=== PATIENT | female | born 1995 | race Caucasian/White ===

== ENCOUNTER → 2023-01-23 | Outpatient (CLI) | payer BC, SELFPAY ==
--- NOTE | 2023-01-23 08:33 | US_ITS ---
STUDY: FIRST TRIMESTER OBSTETRICAL ULTRASOUND REASON FOR EXAM: Female, 27 years old dating LMP: November 12, 2022 TECHNIQUE: Transvaginal TECHNICAL QUALITY: Adequate. PRIOR ULTRASOUND: None. FINDINGS: There is visualization of a single gestational sac in a normal intrauterine position. The mean sac diameter (MSD) measures 2.58 cm, indicating an estimated gestational age (EGA) of 7 weeks, 4 days. The gestational sac shape is within normal limits. There is a visualized yolk sac. The yolk sac measures 3.7 mm. The placenta is non-visualized. There is visualization of a live embryo. The crown-rump length (CRL) measures 1.57 cm, indicating an estimated gestational age (EGA) of 7 weeks, 6 days. There is demonstrated cardiac activity with a heart rate of 159 bpm. The estimated gestation age (EGA) by LMP is 10 weeks, 2 days. The estimated date of delivery (BETHANIE) by LMP is August 19, 2023. The estimated gestation age (EGA) by US is 7 weeks, 5 days. The estimated date of delivery (BETHANIE) by US is September 06, 2023. The uterus measures 9.4 cm x 5.7 cm x 6.2 cm. There is no demonstrated uterine fibroid. The cervix is closed. The right ovary measures 2.9 cm x 3.1 cm x 1.7 cm. There is no right ovarian cyst. There is no visualized right adnexal mass or complex lesion. The left ovary measures 4.8 cm x 4.5 cm x 4 cm. There is a 2.8 cm x 2.5 cm x 2.5 cm left ovarian cyst. There is no visualized left adnexal mass or complex lesion. There is no fluid in the cul de sac. US/Transvaginal w/Preg US IMPRESSION: Single live uterine gestation with a mean gestational age of 7 weeks and 5 days. 2.8 cm x 2.5 cm by 2.5 cm left ovarian cyst. Electronically Signed: Cj Briggs MD at 9:30 EDT ,
[2023-01-25 05:07] LABS: Chlamydia By Nucleic Acid AMP Negative (Negative); Gonococcus By Nucleic Acid AMP Negative (Negative)
== END | disposition home or self-care (01) ==
PROVIDERS: Referring Provider Obstetrics & Gynecology; Visit Provider Obstetrics & Gynecology
DX: Z34.90 Encounter for supervision of normal pregnancy, unspecified, unspecified trimester (principal)
CPT/HCPCS: 76817; 87086; 87088; 87491; 87591

== ENCOUNTER → 2023-02-14 | Outpatient (CLI) | payer BC, SELFPAY ==
[2023-02-14 13:32] LABS: NATERA MAILED SPECIMEN
[2023-02-14 13:43] LABS: Absolute Lymphocyte Count 2.13 X10^3/uL (0.83-4.51); Absolute Neutrophil Count 9.1 X10^3/uL (2.0-7.7); Basophil# 0.02 X10^3/uL; Basophil% 0.2 % (0-1); Eosinophil# 0.09 X10^3/uL; Eosinophils% 0.8 % (0-5); Hematocrit 40.6 % (37-47); Hemoglobin 13.7 g/dL (12.0-15.0); Lymphocyte # 2.13 X10^3/ul (0.83-4.51); Mean Corp Hgb Conc 33.7 g/dL (32-36); Mean Corpuscular Hgb 26.9 pg (27.0-32.0); Mean Corpuscular Volume 79.6 fL (81-99); Mean Platelet Vol. 9.2 fl (6.2-12.0); Monocyte# 0.48 X10^3/uL; NRBC Flagged by Analyzer 0 % (0-5); Neutrophil % 76.7 % (47-70); Platelet Count 338 K/mm3 (150-450); RBC Distribution Width CV 14.6 % (11.6-14.6); RBC Distribution Width SD 41.9 fl (35.1-43.9); White Blood Count 11.9 K/mm3 (4.4-11.0)
[2023-02-14 14:11] LABS: Glucose Challenge Gest 1H 50g 132 mg/dL (70-140)
[2023-02-14 14:53] LABS: HIV - WCH Non-Reactive (Nonreactive); Hepatitis B Surface Antigen Non-Reactive (Nonreactive); Hepatitis C Antibody Non-Reactive (Nonreactive); Rubella IgG Reactive (Nonreactive); Syphilis Antibodies Non-reactive
== END | disposition home or self-care (01) ==
LOC: LAB 12:30
PROVIDERS: Referring Provider Obstetrics & Gynecology; Visit Provider Obstetrics & Gynecology
DX: O99.210 Obesity complicating pregnancy, unspecified trimester (principal); Z3A.00 Weeks of gestation of pregnancy not specified
CPT/HCPCS: 36415; 82950; 85025; 86703; 86762; 86780; 86803; 86850; 86900; 86901; 87340

== ENCOUNTER → 2023-06-05 | Outpatient (CLI) | payer BC, SELFPAY ==
[2023-06-05 13:06] LABS: Absolute Lymphocyte Count 1.82 X10^3/uL (0.83-4.51); Absolute Neutrophil Count 11.6 X10^3/uL (2.0-7.7); Basophil# 0.03 X10^3/uL; Basophil% 0.2 % (0-1); Eosinophil# 0.13 X10^3/uL; Eosinophils% 0.9 % (0-5); Hematocrit 38.3 % (37-47); Hemoglobin 12.4 g/dL (12.0-15.0); Lymphocyte # 1.82 X10^3/ul (0.83-4.51); Lymphocyte % 12.8 % (19-41); Mean Corp Hgb Conc 32.4 g/dL (32-36); Mean Corpuscular Hgb 26.3 pg (27.0-32.0); Mean Corpuscular Volume 81.1 fL (81-99); Mean Platelet Vol. 9.3 fl (6.2-12.0); Monocyte# 0.58 X10^3/uL; Monocyte% 4.1 % (0-10); NRBC Flagged by Analyzer 0 % (0-5); Neutrophil # 11.56 X10^3/uL (2.7-7.7); Neutrophil % 81.2 % (47-70); Platelet Count 314 K/mm3 (150-450); RBC Distribution Width CV 14.6 % (11.6-14.6); RBC Distribution Width SD 43.1 fl (35.1-43.9); Red Blood Count 4.72 M/mm3 (4.2-5.4); White Blood Count 14.2 K/mm3 (4.4-11.0)
[2023-06-05 13:30] LABS: Glucose Challenge Gest 1H 50g 120 mg/dL (70-140)
[2023-06-05 14:04] LABS: HIV - WCH Non-Reactive (Nonreactive); Syphilis Antibodies Non-reactive
== END | disposition home or self-care (01) ==
PROVIDERS: Referring Provider Obstetrics & Gynecology; Visit Provider Obstetrics & Gynecology
DX: O09.92 Supervision of high risk pregnancy, unspecified, second trimester (principal); Z13.1 Encounter for screening for diabetes mellitus; Z3A.23 23 weeks gestation of pregnancy
CPT/HCPCS: 36415; 82950; 85025; 86703; 86780; 86850; 86900; 86901

== ENCOUNTER → 2023-07-13 | Outpatient (CLI) | payer BC, SELFPAY ==
[2023-07-13 10:40] LABS: Absolute Lymphocyte Count 1.92 X10^3/uL (0.83-4.51); Absolute Neutrophil Count 9.7 X10^3/uL (2.0-7.7); Basophil# 0.02 X10^3/uL; Basophil% 0.2 % (0-1); Eosinophil# 0.14 X10^3/uL; Eosinophils% 1.1 % (0-5); Hematocrit 38.7 % (37-47); Hemoglobin 12.2 g/dL (12.0-15.0); Lymphocyte # 1.92 X10^3/ul (0.83-4.51); Lymphocyte % 15.3 % (19-41); Mean Corp Hgb Conc 31.5 g/dL (32-36); Mean Corpuscular Hgb 25.3 pg (27.0-32.0); Mean Corpuscular Volume 80.3 fL (81-99); Mean Platelet Vol. 9.6 fl (6.2-12.0); Monocyte# 0.64 X10^3/uL; Monocyte% 5.1 % (0-10); NRBC Flagged by Analyzer 0 % (0-5); Neutrophil # 9.71 X10^3/uL (2.7-7.7); Neutrophil % 77.6 % (47-70); Platelet Count 277 K/mm3 (150-450); RBC Distribution Width SD 43.4 fl (35.1-43.9); Red Blood Count 4.82 M/mm3 (4.2-5.4); White Blood Count 12.5 K/mm3 (4.4-11.0)
[2023-07-13 10:58] LABS: ALB/GLOB Ratio 0.6 RATIO (0.9-2.4); AST(SGOT) 14 U/L (15-37); Alanine Aminotransfer ALT/SGPT 18 U/L (13-56); Albumin, Serum 2.5 g/dL (3.2-5.0); Alkaline Phosphatase 119 U/L (45-117); Anion Gap 4 (5-15); BUN 5 mg/dL (7-18); BUN/Creat Ratio 8.9 RATIO (10-20); Calcium,Total 8.8 mg/dL (8.5-10.1); Chloride 106 mmol/L (98-107); Creatinine, Serum 0.56 mg/dL (0.55-1.02); EST Glomerular Filtration Rate 138 mL/min (>60); Est Glom Filt Rate - Afr Amer 167 mL/min (>60); Globulin 4.3 g/dL (2.2-4.2); Glucose 95 mg/dL (74-106); Potassium 3.9 mmol/L (3.5-5.1); Protein, Total 6.8 g/dL (6.4-8.2); Protein, Urine (Random) 21.1 mg/dL (<11.9); Protein:Creat Ratio 172 mg/g CRE (0-200); Sodium Level 136 mmol/L (136-145)
== END | disposition home or self-care (01) ==
LOC: LAB 10:13
PROVIDERS: Visit Provider Advanced Practice Midwife
DX: R51.9 Headache, unspecified (principal)
CPT/HCPCS: 36415; 80053; 82570; 84156; 85025

== ENCOUNTER → 2023-08-13 | Outpatient (CLI) | payer OTHER, BC, SELFPAY ==
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
== END | disposition home or self-care (01) ==
LOC: LABSPEC 16:44
PROVIDERS: Referring Provider Obstetrics & Gynecology; Visit Provider Obstetrics & Gynecology
DX: O09.90 Supervision of high risk pregnancy, unspecified, unspecified trimester (principal); Z3A.00 Weeks of gestation of pregnancy not specified
CPT/HCPCS: 87077; 87081; 87186

== ENCOUNTER 2023-09-04 09:23 | Inpatient (IN) | payer OTHER, BC, SELFPAY ==
[2023-09-04] VITALS (41 sets, daily range): BP systolic 107–138; BP diastolic 57–97; PULSE 77–245; RESP 14–19; TEMP 36.4–37.7; O2SAT 81–100; BMI 37.9
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
[2023-09-04] MEDS: LACTATED RINGERS 500 ML 999 ML IV ×3 (10:05→14:40)
[2023-09-04] MEDS: Lactated Ringers 1,000 ML 50 ML IV (10:05)
[2023-09-04 10:17] LABS: Absolute Lymphocyte Count 1.72 X10^3/uL (0.83-4.51); Absolute Neutrophil Count 13.5 X10^3/uL (2.0-7.7); Basophil# 0.04 X10^3/uL; Basophil% 0.3 % (0-1); Eosinophil# 0.03 X10^3/uL; Eosinophils% 0.2 % (0-5); Hematocrit 38.6 % (37-47); Hemoglobin 12.5 g/dL (12.0-15.0); Lymphocyte # 1.72 X10^3/ul (0.83-4.51); Lymphocyte % 10.8 % (19-41); Mean Corp Hgb Conc 32.4 g/dL (32-36); Mean Corpuscular Hgb 24.6 pg (27.0-32.0); Mean Platelet Vol. 10.5 fl (6.2-12.0); Monocyte# 0.57 X10^3/uL; Monocyte% 3.6 % (0-10); NRBC Flagged by Analyzer 0 % (0-5); Neutrophil # 13.48 X10^3/uL (2.7-7.7); Neutrophil % 84.6 % (47-70); Platelet Count 207 K/mm3 (150-450); RBC Distribution Width CV 15.9 % (11.6-14.6); RBC Distribution Width SD 43.5 fl (35.1-43.9); Red Blood Count 5.08 M/mm3 (4.2-5.4); White Blood Count 15.9 K/mm3 (4.4-11.0)
[2023-09-04] MEDS: Penicillin G Pot 5,000,000 UNITS in 0.9% Normal Saline (100mL MB+) 100 ML 150 UNITS IV (10:38)
[2023-09-04 10:48] LABS: Syphilis Antibodies Non-reactive
[2023-09-04] MEDS: fentaNYL-bupivacaine (epidural) 100 ML BAG EPIDURAL (11:40)
[2023-09-04] MEDS: Ondansetron 4 MG/2 ML Vial IV ×2 (12:20→19:56)
--- NOTE | 2023-09-04 12:51 | HP.PCM.OB_ITS ---
HPI - General General Date of Admission: 09/04/23 HPI Narrative GENO AGUILAR, is a 28 y/o @ 39 weeks 6 days who presents to L&D with painful contractions that started last night. She was 0.5 cm dilated in the office on 08/27 and she was found to be 2 cm dilated/80/-1 today. She rates her pain a 7/10 and is requesting an epidural. Maternal Data Information BETHANIE Calculator Estimated Delivery Date Method Current WG Current Estimate 09/05/23 Ultrasound #1 39w 6d Other Estimates 08/19/23 LMP (Uncertain) 42w 2d PFSH PFSH Home Medications PNV 178-FA 180 mcg-om3 35 mg-dha 25 mg-epa 5 mg-fish oil chew tablet 1 tab PO DAILY 01/15/23 [History Last Taken Unknown] Allergy/AdvReac Type Severity Reaction Status Date / Time adhesive Allergy Intermediate Hives Verified 09/04/23 07:25 cefdinir [From Omnicef] Allergy Intermediate Hives Verified 09/04/23 07:25 Family History Grandmother Breast cancer maternal Surgical History Maynard teeth extracted Social History adopted: No household members: spouse current occupational status: employed 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 current occupational exposures/hazards: No pets and animals: Yes pets and animals: dog(s) history of recent travel: No sexually active: Yes Smoking Status: Never smoker alcohol intake: current alcohol intake frequency: holidays/special occasions only details: Not while substance use type: does not use well-balanced diet: daily or most days caffeine: No eating out: 1-3 times/week during the past year weight has: remained stable what type of physical activity do you participate in: walking frequency: 3-4 times per week duration: 15-30 minutes/day brigette/shinto: None seatbelt use: always do you feel safe at home: Yes additional social history: Juan Rodriguez History 1 Elective abortions Hx Para 0 Spontaneous abortions Hx # Term Pregnancies Ectopic pregnancies Hx # Pregnancies Multiple births # of living children Visit Details Expected Delivery Route/Plan Labor Preferences- CB/BF classes: encouraged labor support person: Juan labor intervention preferences: [] pain management options preferred: limited preferred but ok if epidural needed cut cord/dad catch: cord maybe : yes PP control planned: discussed discussed possible routes of delivery and associated risks: [] special requests: [] Plans Covid status: first 2 moderna vaccines Flu vaccine: obtained 05/13 Tdap vaccine: given Rhogam: NA LARC form signed: Yes movement and labor precautions reviewed. Problem list reviewed and updated with the most current plan of care details and appropriate orders placed. Relevant counseling for the gestational age provided. Continue routine care and follow up unless otherwise noted in visit notes/problem list details OB Flowsheet Initial Weight: 225 lb Date -?-?-?-?-?-?-?-?-?-?-?-?- EGA Weight BP Urine Prot -?-?-?-?-?-?-?-?-?-?-?-?- Glucose FHR FuHt Pres Dilation -?-?-?-?-?-?-?-?-?-?-?-?- Effaced St Visit Note 01/23/23 -?-?-?-?-?-?-?-?-?-?-?-?- 7w 6d 225 lb 8 oz (+8 oz) 129/82 -?-?-?-?-?-?-?-?-?-?-?-?- 159 -?-?-?-?-?-?-?-?-?-?-?-?- JV- CRL measured per radiology department and off by several weeks from LMP. BETHANIE 09/05/23 based on preliminary results 02/19/23 -?-?-?-?-?-?-?-?-?-?-?-?- 11w 5d 224 lb (-16 oz) 128/84 Negative -?-?-?-?-?-?-?-?-?-?-?-?- Negative 141 -?-?-?-?-?-?-?-?-?-?-?-?- JV- still having some nausea that is worse at night. will try phenergan. anatomy scan ordered, 03/19/23 -?-?-?-?-?-?-?-?-?-?-?-?- 15w 5d 224 lb (-16 oz) 128/82 Negative -?-?-?-?-?-?-?-?-?-?-?-?- Negative 161 -?-?-?-?-?-?-?-?-?-?-?-?- MH-No VB. Nausea MH-No VB. Nausea still persi sts but improving. Declines zofran. Reviewed management 04/15/23 -?-?-?-?-?-?-?-?-?-?-?-?- 19w 4d 225 lb (+0 oz) 121/74 Negative -?-?-?-?-?-?-?-?-?-?-?-?- Negative 151 -?-?-?-?-?-?-?-?-?-?-?-?- JV- low lying pl acenta and insuffient anatomy views. needs to return in 2-4 weeks and again at 28 weeks to rpt placenta location. 05/13/23 -?-?-?-?-?-?-?-?-?-?-?-?- w 4d 225 lb (+0 oz) 129/80 Negative -?-?-?-?-?-?-?-?-?-?-?-?- Negative 150 24 -?-?-?-?-?-?-?-?-?-?--?-?- LC- no vb/ctx/lo f. good fm. cont with insufficient views. rpt with 28 week us. flu vaccine today. 28 week labs ordered. 06/11/23 -?-?-?-?-?-?-?-?-?-?-?-?- 27w 5d 228 lb 2 oz (+3 lb 2 oz) 128/84 Negative -?-?-?-?-?-?-?-?-?-?-?-?- Negative 158 28 -?-?-?-?-?-?-?-?-?-?-?-?- MH-No VB, LOF. G ood FM. US today. Nl 28 wk labs. Larc. 06/28/23 -?-?-?-?-?-?-?-?-?-?-?-?- 30w 1d 230 lb 2 oz (+5 lb 2 oz) 123/82 Negative -?-?-?-?-?-?-?-?-?-?-?-?- Negative 138 30 -?-?-?-?-?-?-?-?-?-?-?-?- LC- no vb/ctx/lo f. good fm. tdap today. 07/09/23 -?-?-?-?-?-?-?-?-?-?-?-?- 31w 5d 234 lb 2 oz (+9 lb 2 oz) Negative -?-?-?-?-?-?-?-?-?-?-?-?- Negative 135 32 -?-?-?-?-?-?-?-?-?-?-?-?- kw-no vb/lof/ctx . good fm. discussed CB classes and Round Ligament pain. 07/23/23 -?-?-?-?-?-?-?-?-?-?-?-?- 33w 5d 229 lb 4 oz (+4 lb 4 oz) 124/84 Negative -?-?-?-?-?-?-?-?-?-?-?-?- Negative 142 33 Cephalic -?-?-?-?-?-?-?-?-?-?-?-?- MH-No Vb, LOF. G ood FM. Denies concerns 08/06/23 -?-?-?-?-?-?-?-?-?-?-?-?- 35w 5d 234 lb 6 oz (+9 lb 6 oz) 234/6 123/84 Negative -?-?-?-?-?-?-?-?-?-?-?-?- Negative 160 36 -?-?-?-?-?-?-?-?-?-?-?-?- JV- no lof, vagi nal bleeding, some contractions. plan gbs next visit. 08/13/23 -?-?-?-?-?-?-?-?-?-?-?-?- 36w 5d 235 lb (+10 lb) 125/85 -?-?-?-?-?-?-?-?-?-?-?-?- 140 37 Cephalic 0 -?-?-?-?-?-?-?-?-?-?-?-?- SM- no vb lof go od fm no regular ctx gbs done 08/20/23 -?-?--?-?-?-?-?-?-?-?-?-?- 37w 5d 236 lb (+11 lb) 128/85 Trace -?-?-?-?-?-?-?-?-?-?-?-?- Negative 145 39 Cephalic -?-?-?-?-?-?-?-?-?-?-?-?- JV- JV- no lof, vaginal bleeding , or dec fm. 08/27/23 -?-?-?-?-?-?-?-?-?-?-?-?- 38w 5d 240 lb 8 oz (+15 lb 8 oz) 129/87 Negative -?-?-?-?-?-?-?-?-?-?-?-?- Negative 147 39 Cephalic 0 .5 -?-?-?-?-?-?-?-?-?-?-?-?- 30 -3 JV- no lof , vaginal bleeding, or dec fm. labor precautions discussed ROS Constitutional Constitutional: Denies change in weight, fatigue, fever(s), headache(s), poor appetite or weakness Eyes Eyes: Denies blurry vision, change in vision, seeing flashes or spots in vision ENT HEENT: Denies dizziness, headache(s), loss taste/smell or sore throat Cardiovascular Cardiovascular: Denies chest pain, dizziness, dyspnea, irregular heart rhythm, leg edema, palpitations, rapid heart rate or vomiting Respiratory/Chest Respiratory/Chest: Denies chest tightness, cough, dyspnea or breast pain Gastrointestinal Gastrointestinal: Denies abdominal pain, anorexia, constipation, cramping, diarrhea, hemorrhoids, vomiting or weight changes Genitourinary Genitourinary: Denies dysuria, flank pain, genital lesions, genital pain, urinary frequency or urinary urgency Musculoskeletal Musculoskeletal: Denies back pain, difficulty walking, joint pain, limited range of motion, muscle cramps or numbness Integumentary Integumentary: Denies lesions or unusual bruising Neurologic Neurologic: Denies abnormal movements, abnormal speech, dizziness, numbness, seizure-like activity or syncope Psychiatric Psychiatric: Denies anxiety, behavioral changes, change in appetite, change in libido, cognitive impairment, confusion, depression, difficulty concentrating, hallucinations or suicidal thoughts Endocrine Endocrinology: Denies excessive sweating, polydipsia or polyuria Hematologic/Lymphatic Hematologic/Lymphatic: Denies easy bleeding, easy bruising or lymphadenopathy Allergic/Immunologic Allergic/Immunologic: Denies itchy eyes, lip swelling, seasonal rhinorrhea, rhinitis, throat swelling, tongue swelling, eczemia, wheezing or asthma Vital Signs Vital Signs Vital Signs: 09/04/23 07:16 09/04/23 07:16 09/04/23 07:19 Temperature Temperature Source Pulse Rate 245 H Blood Pressure 132/85 H BP Systolic 132 BP Diastolic 85 Pulse Ox 81 09/04/23 07:19 09/04/23 07:17 09/04/23 07:17 Temperature Temperature Source Temporal Pulse Rate 88 Blood Pressure BP Systolic BP Diastolic Pulse Ox 97 09/04/23 07:17 09/04/23 10:14 09/04/23 10:14 Temperature 98.0 F Temperature Source Pulse Rate 77 Blood Pressure 129/78 H BP Systolic 129 BP Diastolic 78 Pulse Ox 09/04/23 10:15 09/04/23 10:16 09/04/23 10:16 Temperature Temperature Source Temporal Pulse Rate 81 Blood Pressure BP Systolic BP Diastolic Pulse Ox 97 09/04/23 10:15 09/04/23 10:59 09/04/23 10:59 Temperature 97.6 F L Temperature Source Pulse Rate 106 H Blood Pressure BP Systolic BP Diastolic Pulse Ox 99 09/04/23 11:04 09/04/23 11:04 09/04/23 11:07 Temperature Temperature Source Pulse Rate 108 H Blood Pressure 121/77 H BP Systolic 121 BP Diastolic 77 Pulse Ox 98 09/04/23 11:07 09/04/23 11:09 09/04/23 11:09 Temperature Temperature Source Pulse Rate 92 106 H Blood Pressure BP Systolic BP Diastolic Pulse Ox 97 09/04/23 11:12 09/04/23 11:12 09/04/23 11:14 Temperature Temperature Source Pulse Rate 88 97 Blood Pressure 117/75 BP Systolic 117 BP Diastolic 75 Pulse Ox 09/04/23 11:14 09/04/23 11:17 09/04/23 11:17 Temperature Temperature Source Pulse Rate 96 Blood Pressure 107/63 BP Systolic 107 BP Diastolic 63 Pulse Ox 97 09/04/23 11:19 09/04/23 11:19 09/04/23 11:22 Temperature Temperature Source Pulse Rate 88 Blood Pressure 110/64 BP Systolic 110 BP Diastolic 64 Pulse Ox 97 09/04/23 11:22 09/04/23 11:24 09/04/23 11:24 Temperature Temperature Source Pulse Rate 89 86 Blood Pressure BP Systolic BP Diastolic Pulse Ox 99 09/04/23 11:27 09/04/23 11:27 09/04/23 11:29 Temperature Temperature Source Pulse Rate 82 88 Blood Pressure 112/61 BP Systolic 112 BP Diastolic 61 Pulse Ox 09/04/23 11:29 09/04/23 11:34 09/04/23 11:34 Temperature Temperature Source Pulse Rate 106 H Blood Pressure BP Systolic BP Diastolic Pulse Ox 100 98 09/04/23 12:12 09/04/23 12:12 09/04/23 12:12 Temperature Temperature Source Pulse Rate 79 Blood Pressure 111/57 L BP Systolic 111 BP Diastolic 57 Pulse Ox 100 Weight Weight: 235 lb Body Mass Index (BMI) 37.9 Physical Exam Const alert, oriented x3, no apparent distress and healthy appearing General Appearance: cooperative; Negative for anxious HEENT normocephalic Face and Sinus: normal facial exam Eyes EOMs intact bilaterally and no scleral icterus General Eye: normal appearance of both eyes Neck full ROM and supple Lymph Lymphatic: no lymphadenopathy noted Chest Chest: abnormal inspection of the chest Resp normal respiratory effort Effort and Inspection: able to speak in complete sentences Cardio regular rate GI soft to palpation and non-tender Inspection: gravid Palpation: soft; Negative for tender external exam normal Narrative: cx 2/80/-1, membranes ruptured and clear fluid returned. an IUPC was then placed without difficulty. Amniotic Fluid: ROM+plus Back/Spine no CVA tenderness Extremity normal to inspection, full ROM and no clubbing, cyanosis or edema General Extremity: Negative for calf tenderness or edema Skin Lesions: no lesions Rashes: no rashes Psych mental status grossly normal Labs Labs Labs: Blood Type O POSITIVE Antibody Screen NEGATIVE Hct 38.6 % (37-47) Hgb 12.5 g/dL (12.0-15.0) Obstetrics Ultrasound Syphilis Total Ab Non-reactive Rubella IgG Antibody Reactive (Nonreactive) Hep Bs Antigen Non-Reactive (Nonreactive) Hepatitis C Antibody Non-Reactive (Nonreactive) Chlamydia DNA (BLAIRE) Negative (Negative) N.gonorrhoeae DNA (BLAIRE) Negative (Negative) HIV 1&2 Antibody Non-Reactive (Nonreactive) Glucose 1 Hr 50 gm 120 mg/dL (70-140) Assessment & Plan (1) Positive GBS test: COMMENT: treat in labor (2) Obesity affecting : QUALIFIERS: Trimester: second trimester Obesity type affecting : unspecified obesity Qualified Code(s): O99.212 - Obesity complicating , second trimester COMMENT: normal GCT (3) Supervision of high-risk : QUALIFIERS: Trimester: second trimester Qualified Code(s): O09.92 - Supervision of high risk , unspecified, second trimester COMMENT: [id number], BETHANIE 08/19/23 girl Daniel Juan normal glucola (4) : QUALIFIERS: Weeks of gestation: 38 weeks Qualified Code(s): Z3A.38 - 38 weeks gestation of COMMENT: NIPT LR.declined carrier and afp. normal anatomy PLAN: Plan Patient presents IAL, plan expectant management for , pitocin PRN Pain management: plans epidural. GBS positive plan IV PCN. Management of any complications: none I have reviewed the [facility] and made any clinically relevant updates.
[2023-09-04] MEDS: Amnioinfusion- 0.9% NS 1,000 ML IV.SOLN. 1000 ML INTRA-UTER (14:00)
[2023-09-04] MEDS: Penicillin G 3,000,000 Units 50 ML 100 UNITS IV (14:40)
[2023-09-04] MEDS: Acetaminophen 500 MG Tablet PO (15:08)
[2023-09-04] MEDS: Sodium Citrate/Citric Acid 30 ML UDC PO (15:08)
[2023-09-04] MEDS: Clindamycin 900 MG/50 ML BAG 75 MG IV (15:24)
[2023-09-04] MEDS: Gentamicin IV 300 MG in Dextrose 5%-Water (50mL Bag) 50 ML 100 MG IVPB (15:31)
[2023-09-04] MEDS: Azithromycin 500 MG in Dextrose 5%-Water (250mL Bag) 250 ML 250 MG IV (16:00)
[2023-09-04] MEDS: Oxytocin 15 Units/NS 250ml 15 UNITS/250 ML IV.SOLN 83 UNITS IV (16:30)
--- NOTE | 2023-09-04 16:45 | EX.PCM.OBRPT ---
Assessment & Plan (1) Positive GBS test: COMMENT: treat in labor (2) Obesity affecting : QUALIFIERS: Obesity type affecting : unspecified obesity Trimester: second trimester Qualified Code(s): O99.212 - Obesity complicating , second trimester COMMENT: normal GCT (3) Supervision of high-risk : QUALIFIERS: Trimester: second trimester Qualified Code(s): O09.92 - Supervision of high risk , unspecified, second trimester COMMENT: [id number], BETHANIE 08/19/23 girl Jayden Juan normal glucola (4) : QUALIFIERS: Weeks of gestation: 38 weeks Qualified Code(s): Z3A.38 - 38 weeks gestation of COMMENT: NIPT LR.declined carrier and afp. normal anatomy (5) intolerance to labor, delivered, current hospitalization: Maternal Data Information BETHANIE Calculator Estimated Delivery Date Method Current WG Current Estimate 09/05/23 Ultrasound #1 39w 6d Other Estimates 08/19/23 LMP (Uncertain) 42w 2d Final BETHANIE: 09/05/23 Final BETHANIE Source: US <20 weeks Gestational age: 39 weeks 6 days Doctor Who Attended Delivery: Lorraine Mccormick Details Operative Information Date of Procedure: 09/04/23 Pre-Operative Diagnosis: 28 y/o @ 39 weeks 6 days, intolerance to labor Post-Operative Diagnosis: 28 y/o @ 39 weeks 6 days, intolerance to labor Indications for : Suspected chorioamnionitis (Suspected Triple I) Indications Narrative: The patient was admitted for active labor management. She recieved an epidural and after 1 hour consented to Artificial rupture of membranes. This was at 12:20 on 09/04/23. After AROM the tracing changed from a category 1 to a persistent category 2 despite fluid bolus, position change, and amnioinfusion. The patient was found to be laurent often but not making much cervical change. There were no signs of bleeding or infection. The cervix was noted to be dilated 4/90/-1. The decision was made to proceed with a section Classification: GRADY Procedure Type: low transverse medical physics professor #1: Suzy Olivera Type of Anesthesia: Epidural Anesthesiologist: Hong Bernard Antibiotic Given: Clindamycin 600mg IV x1 and Gentamicin 1.5mg/kg IV x1 Drain: Wang to straight drain Estimated Blood Loss: 600cc Procedure Start Time: 15:27 Procedure Stop Time: 16:10 Findings Description of Procedure: The patient anesthesia was placed without difficulty. Wang catheter was placed. The patient was placed in the dorsal supine position with leftward tilt. Patient was prepped and draped in the normal sterile fashion. Pfannenstiel skin incision was made with the scalpel and carried through to the underlying layer of fascia with the scalpel. Fascia was nicked in the midline and the incision extended laterally. The rectus bellies were dissected off superiorly and inferiorly with out complication both sharply and bluntly. The peritoneum was entered digitally. The incision was stretched and a low transverse uterine incision was made with the scalpel. The 's head was delivered atraumatically followed by the anterior and posterior shoulders without complication the rest of the delivered. The cord was clamped and cut and the was handed off to awaiting nurse. The placenta was delivered spontaneously immediately following and was noted to be intact and have a three-vessel cord. The uterus was exteriorized cleared of all clots and debris, and the incision was closed in a double layer closure using #1 Vicrul and #1 Monocryl. The ovaries and fallopian tubes were noted to be within normal limits. The uterus was returned to the maternal abdomen and gutters were cleared of all clots and debris. The peritoneum was closed with 3-0 Monocryl in a running fashion. Fascia was closed with 0 PDS in a running fashion. Subcutaneous tissue was copiously irrigated and the skin was closed with 3-0 Monocryl in a subcuticular fashion. Mepilex dressing was applied without complication. Patient was taken to recovery in stable condition. It was discussed with the patient that based on the clinical information obtained during this encounter, combined with her history, at this time I would recommend either or repeat section for future deliveries if further pregnancies are desired. Presentation: Positive for Vertex Amniotic Membrane Rupture Type: Artificial Time of Membrane Ruptured: 1220 Amniotic Fluid Description: Clear Placental Delivery Description: Manual Removal Placenta Disposition: [facility] Cord Vessel Description: 3 Vessels Cord Entanglement: None A Gender: Female (1 minute): 8 (5 minute): 9 Delayed Cord Clamping: Yes Complications Risks of Surgery Discussed w/Patient: Bleeding, Anesthesia Risks, Need for Future C-Sections and Injury to surrounding structure(s) including bowel and bladder Complications: none Multi Select Codes Urinary/Genital Urinary/Genital CPT Codes: 74505 delivery+ Care([facility])
--- NOTE | 2023-09-04 17:01 | DCINST_ITS ---
Discharge Instructions Diet Discharge Diet: No restrictions Activity Discharge Activity: May Not Drive (for 2 weeks or while taking narcotic pain medications.), May Shower and May Take a Tub Bath (in 7 days.) May resume sexual activity in: 4-6 weeks Weight Bearing Status: Full weight bearing Lifting Restrictions: 20 pounds Dressing / Incision Call your doctor if your incision/area has: Continuous Slow Oozing, Sudden Increased Bleeding, Increased Pain/ Swelling, Increased Redness and Foul Smelling Discharge Call your doctor if you observe: Fever of 101 or Higher and Using more than 1 pad per hour Suture Line Care: Avoid Pulling/Pushing and Avoid Pinching/Bending Cleanse incision/area with: Soap & Water and Keep Dressing Clean & Dry Follow Up Care Please Follow Up With: Rosamaria Gonzales DO When: Call [phone] to make an appointment for an incision check in 1-2 weeks. Test Results: Test results from this visit will be discussed in further detail at your follow- up appointment, if applicable. Discharge Plan Admission Admit Date/Time: 09/04/23 09:23 Primary Reason for Your Visit: section Attending Provider: Rosamaria Gonzales Primary Care Provider: Nate Physician,Frannie Primary Discharge Orders/Prescriptions Prescriptions: New ibuprofen 800 mg tablet 800 mg PO Q8H PRN (Reason: pain) Qty: 30 0RF No Action PNV no.[id number] 180 mcg-35 mg- 25 mg-5 mg tablet,chewable 1 tab PO DAILY Referrals / Follow Up: Care Physician,No Primary [Primary Care Provider] - Disposition Disposition (needs filled in before D/C Order can be placed): Home, Self Care
[2023-09-04] MEDS: Ketorolac 30 MG/ML Syringe IV ×2 (17:29→23:18)
[2023-09-04] MEDS: Lactated Ringers 1,000 ML 100 ML IV (19:39)
[2023-09-04] MEDS: Acetaminophen 500 MG Tablet 1000 MG PO (20:38)
[2023-09-05] VITALS (7 sets, daily range): BP systolic 101–134; BP diastolic 67–93; PULSE 78–94; RESP 16–18; TEMP 36.2–36.8; O2SAT 96–100
[2023-09-05] MEDS: Acetaminophen 500 MG Tablet 1000 MG PO ×4 (03:03→20:43)
[2023-09-05] MEDS: Ketorolac 30 MG/ML Syringe IV ×2 (05:16→11:23)
[2023-09-05] MEDS: 0.9% Saline Lock 10 ML Syringe IV ×2 (05:17→11:24)
[2023-09-05 05:35] LABS: Hematocrit 29.6 % (37-47); Hemoglobin 9.5 g/dL (12.0-15.0); Mean Corp Hgb Conc 32.1 g/dL (32-36); Mean Corpuscular Hgb 24.9 pg (27.0-32.0); Mean Corpuscular Volume 77.5 fL (81-99); Mean Platelet Vol. 9.8 fl (6.2-12.0); Platelet Count 184 K/mm3 (150-450); RBC Distribution Width SD 44.7 fl (35.1-43.9); Red Blood Count 3.82 M/mm3 (4.2-5.4); White Blood Count 16.9 K/mm3 (4.4-11.0)
--- NOTE | 2023-09-05 08:05 | PCM.PN.OB ---
Subjective Subjective Patient doing well without complaints. Tolerating PO. Ambulating and voiding without difficulty. feeding well. Denies chest pain, shortness of breath, calf pain/swelling, fevers, chills, lightheadedness. Objective Data Objective Data Vital Signs: Vital Signs Temp Pulse Resp BP Pulse Ox O2 Del Method 97.4 F L 94 16 126/80 H 100 Room Air 09/05/23 02:59 09/05/23 05:33 09/05/23 05:33 09/05/23 02:59 09/05/23 05:33 09/05/23 05:33 Oxygen Delivery Method Room Air Weight: 235 lb Body Mass Index (BMI) 37.9 Intake & Output: Intake and Output for Last 24 Hours 09/03/23 09/04/23 09/05/23 23:59 23:59 23:59 Intake Total 3763.33 / 3763.33 860 / 860 Output Total 1750 / 1750 400 / 400 Balance / 460 / 460 Lab / Micro Data 09/05/23 05:25 Labs: Laboratory Results - last 24 hr 09/04/23 09:50: WBC 15.9 H, RBC 5.08, Hgb 12.5, Hct 38.6, MCV 76.0 L, MCH 24.6 L, MCHC 32.4, RDW Std Deviation 43.5, RDW Coeff of Alejandra 15.9 H, Plt Count 207, MPV 10.5, Immature Gran % (Auto) 0.500, Neut % (Auto) 84.6 H, Lymph % (Auto) 10.8 L, [place] % (Auto) 3.6, Eos % (Auto) 0.2, Baso % (Auto) 0.3, Absolute Neuts (auto) 13.5 H, Absolute Lymphs (auto) 1.72, Nucleated RBC % 0, Syphilis Total Ab Non-reactive, Blood Type O POSITIVE, Antibody Screen NEGATIVE 09/05/23 05:25: WBC 16.9 H, RBC 3.82 L, Hgb 9.5 L, Hct 29.6 L, MCV 77.5 L, MCH 24.9 L, MCHC 32.1, RDW Std Deviation 44.7 H, RDW Coeff of Alejandra 16.0 H, Plt Count 184, MPV 9.8 ROS Constitutional Constitutional: Reports systems reviewed and no addt'l complaints, except as documented Cardiovascular Cardiovascular: Reports systems reviewed and no addt'l complaints, except as documented Respiratory/Chest Respiratory/Chest: Reports systems reviewed and no addt'l complaints, except as documented Gastrointestinal Gastrointestinal: Reports systems reviewed and no addt'l complaints, except as documented Physical Exam Const alert, oriented x3 and no apparent distress HEENT Head and Scalp: atraumatic Resp normal respiratory effort GI soft to palpation and non-tender Inspection: incision intact, healing well and drainage (none) Bimanual Exam - Vag & Uterus: uterus non-tender Uterus Palpation: uterus fundus firm (below Umbilicus) Assessment & Plan (1) delivery delivered: COMMENT: JV PLAN: Plan s/p LTCS PPD # 1 1. routine post care 2. breast feeding- support given 3. rh positive 4. rubella immune
[2023-09-05] MEDS: Senna/Docusate Sodium 1 Tablet PO (09:30)
[2023-09-05] MEDS: Ibuprofen 600 MG Tablet PO ×2 (17:40→23:43)
[2023-09-05] MEDS: oxyCODONE 5 MG Tablet PO ×2 (17:42→22:03)
[2023-09-06 03:00] VITALS: BP 111/74; PULSE 94; RESP 16; O2SAT 97
[2023-09-06] MEDS: Acetaminophen 500 MG Tablet 1000 MG PO ×3 (03:01→16:50)
[2023-09-06] MEDS: oxyCODONE 5 MG Tablet PO ×3 (04:18→18:54)
[2023-09-06] MEDS: Ibuprofen 600 MG Tablet PO ×3 (05:48→16:51)
[2023-09-06] MEDS: Senna/Docusate Sodium 1 Tablet PO (08:58)
[2023-09-06 10:00] VITALS: BP 129/88; PULSE 99; RESP 18; TEMP 36.2; O2SAT 96
[2023-09-06 18:00] VITALS: BP 126/96; PULSE 87; RESP 16; TEMP 36.6; O2SAT 98
--- NOTE | 2023-09-10 13:43 | NURSING ---
f/up phone call 09/10: doing really well, denies any s+s, vaginal bleeding minimal, had a good hospital stay. Incision is sore, but doing well every day. Saw on Saturday. Denies questions or concerns.
== END 2023-09-06 19:23 | disposition home or self-care (01) | DRG 788 ==
LOC: WPOUT 09:25 → WP 09:25
PROVIDERS: Admitting Provider Obstetrics & Gynecology; Referring Provider Advanced Practice Midwife; Visit Provider Obstetrics & Gynecology
DX: O41.1230 Chorioamnionitis, third trimester, not applicable or unspecified (principal); O99.214 Obesity complicating childbirth; O77.8 Labor and delivery complicated by other evidence of fetal stress; O99.824 Streptococcus B carrier state complicating childbirth; Z37.0 Single live birth; Z3A.39 39 weeks gestation of pregnancy
CPT/HCPCS: 59025; 59050; 85025; 85027; 86780; 86850; 86900; 86901; 99221; J7030; J7120; A4216; G0378; J2405

== ENCOUNTER → 2023-10-04 | Outpatient (CLI) | payer OTHER, BC, SELFPAY ==
[2023-10-11 17:29] LABS: HPV Reflexed? NOT INDICATED
== END | disposition home or self-care (01) ==
PROVIDERS: Referring Provider Registered Nurse; Visit Provider Registered Nurse
DX: Z12.4 Encounter for screening for malignant neoplasm of cervix (principal); N89.8 Other specified noninflammatory disorders of vagina
CPT/HCPCS: 87070; 87077; 87205; 88175; G0145

== ENCOUNTER → 2025-07-02 | Outpatient (CLI) | payer BC, SELFPAY ==
[2025-07-02 17:10] LABS: hCG Titer Quant., Serum 8552 mIU/mL (<9 non-preg)
[2025-07-05 18:08] LABS: Chlamydia By Nucleic Acid AMP Negative (Negative); Gonococcus By Nucleic Acid AMP Negative (Negative)
== END | disposition home or self-care (01) ==
PROVIDERS: Visit Provider Student in an Organized Health Care Education/Training Program
DX: O09.90 Supervision of high risk pregnancy, unspecified, unspecified trimester (principal); O20.0 Threatened abortion; Z3A.00 Weeks of gestation of pregnancy not specified
CPT/HCPCS: 36415; 84702; 87086; 87088; 87491; 87591